=== PATIENT | female | born 1940 | race Caucasian/White ===

== ENCOUNTER 2019-09-24 12:10 | Inpatient (IN) | payer MEDICARE ==
--- NOTE | 2019-09-24 12:34 | ER Document Report ---
ED Medical Screen (RME) - General Chief Complaint: Abnormal Lab Results Stated Complaint: ABNORMAL LABS Time Seen by Provider: 09/24/19 12:15 Primary Care Provider: HARDIK MURRAY PA-C [Primary Care Provider] - Follow up as needed Mode of Arrival: Ambulatory Information source: Patient - HPI Notes: 09/24/19 12:31 67-year-old female with a history of hypertension, type 2 diabetes, peripheral neuropathies of her feet, hypercholesterolemia presents to the emergency room from her primary care provider for "abnormal labs", states that she had a "problem with my kidneys". Patient states she sees Hardik murray PCP, does not see any other provider for any other medical issues. Patient is unsure of what her kidney functions were. Patient is never been seen at this emergency room before by this hospital. Denies any chest pain, shortness of breath, nausea, vomiting, diarrhea, abdominal pain, lower back pain, dysuria, headache, fever chills, rashes. Denies any new medications foods or travel. I have greeted and performed a rapid initial assessment of this patient. A comprehensive ED assessment and evaluation of the patient, analysis of test res ults and completion of the medical decision making process will be conducted by additional ED providers. PHYSICAL EXAMINATION: GENERAL: Chronically ill, well-nourished and in no acute distress. HEAD: Atraumatic, normocephalic. EYES: Pupils equal round extraocular movements intact, conjunctiva are normal. NECK: Normal range of motion CV: sinus tachycardia LUNGS: No respiratory distress 09/24/19 12:34 Physical Exam - Vital signs Vitals: Temp Pulse Resp BP Pulse Ox 99.6 F 106 H 20 165/81 H 98 09/24/19 12:24 09/24/19 12:24 09/24/19 12:24 09/24/19 12:24 09/24/19 12:24 Course - Vital Signs Vital signs: Temp Pulse Resp BP Pulse Ox 99.6 F 106 H 20 165/81 H 98 09/24/19 12:24 09/24/19 12:24 09/24/19 12:24 09/24/19 12:24 09/24/19 12:24 Doctor's Discharge - Discharge Referrals: HARDIK MURRAY PA-C [Primary Care Provider] - Follow up as needed
[2019-09-24 14:07] LABS: ABSOLUTE EOSINOPHILS # (AUTO) 0.1 10^3/uL (0.0-0.6); ABSOLUTE LYMPHOCYTES (AUTO) 1.2 10^3/uL (0.5-4.7); ABSOLUTE MONOCYTES (AUTO) 0.4 10^3/uL (0.1-1.4); ABSOLUTE NEUT (AUTO) 3.7 10^3/uL (1.7-8.2); BASOPHILS % (AUTO) 0.5 % (0-2); EOSINOPHILS % (AUTO) 2.3 % (0-6); HEMATOCRIT 33.2 % (36.0-47.0); HEMOGLOBIN 11.5 g/dL (12.0-15.5); LYMPHOCYTES % (AUTO) 21.4 % (13-45); MEAN CORPUSCULAR HEMOGLOBIN 31.8 pg (27.0-33.4); MEAN CORPUSCULAR HGB CONC 34.7 g/dL (32.0-36.0); MEAN CORPUSCULAR VOLUME 92 fl (80-97); MONOCYTES % (AUTO) 7.6 % (3-13); PLATELET COUNT 208 10^3/uL (150-450); RED BLOOD COUNT 3.62 10^6/uL (3.72-5.28); RED CELL DISTRIBUTION WIDTH 13.1 % (11.5-14.0); SEGMENTED NEUTROPHILS % (AUTO) 68.2 % (42-78); TOTAL CELLS COUNTED % (AUTO) 100 %; WHITE BLOOD COUNT 5.5 10^3/uL (4.0-10.5)
[2019-09-24 14:11] LABS: APPEARANCE,URINE CLOUDY; BILIRUBIN,URINE NEGATIVE (NEGATIVE); COLOR,URINE YELLOW; GLUCOSE, URINE NEGATIVE (NEGATIVE); KETONES,URINE NEGATIVE (NEGATIVE); LEUKOCYTE ESTERASE,URINE LARGE (NEGATIVE); NITRITE,URINE POSITIVE (NEGATIVE); PROTEIN,URINE 100 mg/dL (NEGATIVE); URINE SPECIFIC GRAVITY 1.012; UROBILINOGEN,URINE NEGATIVE mg/dL (<2.0)
--- NOTE | 2019-09-24 14:21 | EKG REPORT ---
SEVERITY:- OTHERWISE NORMAL ECG - SINUS RHYTHM BORDERLINE LEFT AXIS DEVIATION : Confirmed by: Quoc Garcia MD 24-Sep-2019 14:21:25
[2019-09-24 14:30] LABS: ALBUMIN 4.4 g/dL (3.5-5.0); ALKALINE PHOSPHATASE 51 U/L (38-126); ANION GAP 14 (5-19); ASPARTATE AMINO TRANSFERASE 32 U/L (14-36); BILIRUBIN,TOTAL 0.3 mg/dL (0.2-1.3); BLOOD UREA NITROGEN 43 mg/dL (7-20); CALCIUM 9.8 mg/dL (8.4-10.2); CARBON DIOXIDE 20 mmol/L (22-30); CHLORIDE 103 mmol/L (98-107); GLUCOSE 119 mg/dL (75-110); POTASSIUM 5.5 mmol/L (3.6-5.0); TOTAL PROTEIN 7.2 g/dL (6.3-8.2)
[2019-09-24] MEDS ORDERED: NORMAL SALINE 1000 ML 1,000 ML IV ONE (16:14)
--- NOTE | 2019-09-24 16:24 | ER Document Report ---
ED General - General Chief Complaint: Abnormal Lab Results Stated Complaint: ABNORMAL LABS Time Seen by Provider: 09/24/19 12:15 Primary Care Provider: HARDIK MURRAY PA-C [Primary Care Provider] - Follow up as needed Mode of Arrival: Ambulatory - [facility] Notes: Patient is a 78-year-old female who presents to the emergency department for evaluation of abnormal labs. She states she saw Hardik murray for routine follow- up, had her 6-month labs performed. She was sent here because of an abnormal creatinine. The patient states she has been eating and drinking normally. She has been stable on the medications she has been taking for years. She states she may have noticed a small decrease in her urination, but is urinated 4 times so far today. No fevers or chills. No nausea or vomiting. No diarrhea. Eating and drinking normally. No changes in activity. She has not been s welling. She has no dysuria or hematuria. 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" Endocrine Medical History: Reports: Hx Diabetes Mellitus Type 2 Review of Systems - Review of Systems Constitutional: No symptoms reported EENT: No symptoms reported Cardiovascular: No symptoms reported Respiratory: No symptoms reported Gastrointestinal: No symptoms reported Genitourinary: No symptoms reported Female Genitourinary: No symptoms reported Musculoskeletal: No symptoms reported Skin: No symptoms reported Hematologic/Lymphatic: No symptoms reported Neurological/Psychological: No symptoms reported Physical Exam - Vital signs Vitals: Temp Pulse Resp BP Pulse Ox 99.6 F 106 H 20 165/81 H 98 09/24/19 12:24 09/24/19 12:24 09/24/19 12:24 09/24/19 12:24 09/24/19 12:24 - Notes Notes: Vital signs reviewed, please refer to chart. Head is normocephalic, atraumatic. Pupils equal round, reactive to light. Neck is supple without meningismus. Heart is regular rate and rhythm. Lungs are clear to auscultation bilaterally. Abdomen is soft, nontender, normoactive bowel sounds throughout. Extremities without cyanosis, clubbing. Posterior calves are nontender. Peripheral pulses are equal. Skin is warm and dry. Patient is awake, alert, neurological exam is nonfocal. Course - Re-evaluation Re-evalutation: 09/24/19 16:23 Patient presents to the emergency department for evaluation of abnormal labs. Laboratory investigations were ordered. I did have a chance to review old labs as placed in the chart. She had a normal creatinine at the end of last year. Today it is 5.69. She has mild hyperkalemia mild dehydration. She is given a liter of fluids. She has no EKG changes. I discussed this with the patient, I believe it is tovar for the patient to be admitted to have a further evaluation of this renal failure. She is amenable to this. 09/24/19 16:[address] Kelsey, then Geovanna Martinez NP, who will admit the patient. As per medicine's request, I did also speak to Dr. Garcia. He will see the patient in consultation. - Vital Signs Vital signs: Temp Pulse Resp BP Pulse Ox 99.6 F 106 H 20 165/81 H 98 09/24/19 12:24 09/24/19 12:24 09/24/19 12:24 09/24/19 12:24 09/24/19 12:24 - Laboratory Result Diagrams: 09/24/19 13:25 09/24/19 13:25 Laboratory results interpreted by me: 09/24/19 09/24/19 09/24/19 13:15 13:25 13:25 RBC 3.62 L Hgb 11.5 L Hct 33.2 L Potassium 5.5 H Carbon Dioxide 20 L BUN 43 H Creatinine 5.69 H Est GFR ( Amer) 9 L Est GFR (MDRD) Non-Af 7 L Glucose 119 H Urine Protein 100 H Urine Blood MODERATE H Urine Nitrite POSITIVE H Ur Leukocyte Esterase LARGE H - EKG Interpretation by Me Additional EKG results interpreted by me: 09/24/19 16:23 Sinus mechanism with a rate of 83 bpm. Mild left axis deviation. Normal intervals. No acute ST changes concerning for ischemia or infarction. Discharge - Discharge Clinical Impression: Acute renal failure, Hyperkalemia, Urinary tract infection Condition: Stable Disposition: ADMITTED INPATIENT Admitting Provider: Laure (Hospitalist) - Geovanna Martinez NP Unit Admitted: Telemetry Referrals: HRADIK MURRAY PA-C [Primary Care Provider] - Follow up as needed
[2019-09-24] MEDS ORDERED: CEFTRIAXONE 1 GM/D5W RTU 1 GM/50 ML RTUPB IV ONE (16:30)
[2019-09-24] MEDS ORDERED: ONDANSETRON HCL INJ/PF 4 MG/2 ML SDV IV PRN (17:20)
[2019-09-24] MEDS ORDERED: MAG HYDROX/AL HYDROX/SIMETH SUSP 30 ML UDCUP PO PRN (17:20)
[2019-09-24] MEDS ORDERED: HYDRALAZINE HCL INJ/PF 20 MG/1 ML SDV IV PRN (17:24)
[2019-09-24] MEDS ORDERED: DEXTROSE 40% GEL 15 GM TUBE PO PRN ×2 (17:28)
[2019-09-24] MEDS ORDERED: DEXTROSE 50%-WATER 25 GM/50 ML DISP.SYRIN IV PRN ×2 (17:28)
[2019-09-24] MEDS ORDERED: GLUCAGON,HUMAN RECOMB 1 MG INJ IM PRN (17:28)
[2019-09-24] MEDS ORDERED: SODIUM POLYSTYRENE SULFONATE 15 GM/60 ML PO ONE (17:34)
--- NOTE | 2019-09-24 17:37 | PDOC H&P ---
History of Present Illness Admission Date/PCP: HARDIK PAYTON PA-C Patient complains of: abnormal labs History of Present Illness: ARMIDA CARTER is a 78 year old female with a past medical history significant for DM 2, goiter, hypertension, hyperlipidemia who presented to the emergency department today after being instructed to do so by her primary care provider related to abnormal labs. She was found to have a Creatinine >5 on her yearly routine lab work this week. Patient reports that she has been in her usual state of health; denies new symptoms or medication changes. She reports adequate p.o. intake of fluids without change in appetite. Evaluation emergency department revealed low-grade temp (99.6) tachycardia (HR 106), hypertension (165/81), creatinine 5.69/BUN 43, potassium 5.5, and urinalysis positive for UTI. She is provided a 1 L normal saline bolus and rocephin. Nephrology is consulted. She is referred to the hospitalist service for admission and management of the above complaints and findings. Past Medical History Cardiac Medical History: Reports: Hyperlipidema, Hypertension Pulmonary Medical History: Reports: None EENT Medical History: Reports: Eyes - Lt occular CVA Endocrine Medical History: Reports: Diabetes Mellitus Type 2 Renal/ Medical History: Reports: None Malignancy Medical History: Reports: None GI Medical History: Reports: None Musculoskeltal Medical History: Reports: None Skin Medical History: Reports: None Psychiatric Medical History: Reports: None Traumatic Medical History: Reports: None Hematology: Reports: None Infectious Medical History: Reports: None Social History Information Source: Patient Lives with: Alone Smoking Status: Former Smoker Electronic Cigarette use?: No Frequency of Alcohol Use: Rare Hx Recreational Drug Use: No Hx Prescription Drug Abuse: No - Advance Directive Resuscitation Status: Full Code Family History Family History: Malignancy - Leukemia in mother Parental Family History Reviewed: Yes Children Family History Reviewed: Yes Sibling(s) Family History Reviewed.: Yes Medication/Allergy Allergies/Adverse Reactions: No Known Allergies Allergy (Verified 09/24/19 17:30) Review of Systems Constitutional: ABSENT: chills, fever(s), headache(s), weight gain, weight loss Eyes: ABSENT: visual disturbances Ears: ABSENT: hearing changes Cardiovascular: ABSENT: chest pain, dyspnea on exertion, edema, orthropnea, palpitations Respiratory: ABSENT: cough, hemoptysis Gastrointestinal: ABSENT: abdominal pain, constipation, diarrhea, hematemesis, hematochezia, nausea, vomiting Genitourinary: ABSENT: difficulty urinating, dysuria, hematuria Musculoskeletal: ABSENT: joint swelling Integumentary: ABSENT: rash, wounds Neurological: ABSENT: abnormal gait, abnormal speech, confusion, dizziness, focal weakness, syncope Psychiatric: ABSENT: anxiety, depression, homidical ideation, suicidal ideation Endocrine: ABSENT: cold intolerance, heat intolerance, polydipsia, polyuria Hematologic/Lymphatic: ABSENT: easy bleeding, easy bruising Physical Exam Vital Signs: Temp Pulse Resp BP Pulse Ox 99.6 F 106 H 20 165/81 H 98 09/24/19 12:24 09/24/19 12:24 09/24/19 12:24 09/24/19 12:24 09/24/19 12:24 Intake & Output 09/23/19 09/24/19 09/25/19 06:59 06:59 06:59 Weight 72 kg General appearance: PRESENT: no acute distress, cooperative, well-developed, well-nourished Head exam: PRESENT: atraumatic, normocephalic Eye exam: PRESENT: conjunctiva pink, EOMI, PERRLA. ABSENT: scleral icterus Mouth exam: PRESENT: moist, tongue midline Respiratory exam: PRESENT: clear to auscultation huan, symmetrical, unlabored. ABSENT: rales, rhonchi, wheezes Cardiovascular exam: PRESENT: RRR, +S1, +S2. ABSENT: diastolic murmur, rubs, systolic murmur Pulses: PRESENT: normal dorsalis pedis pul Vascular exam: PRESENT: normal capillary refill GI/Abdominal exam: PRESENT: normal bowel sounds, soft. ABSENT: distended, guarding, mass, organolmegaly, rebound, tenderness Rectal exam: PRESENT: deferred Extremities exam: PRESENT: full ROM. ABSENT: calf tenderness, clubbing, pedal edema Musculoskeletal exam: PRESENT: ambulatory Neurological exam: PRESENT: alert, awake, oriented to person, oriented to place, oriented to time, oriented to situation, CN II-XII grossly intact. ABSENT: motor sensory deficit Psychiatric exam: PRESENT: anxious, appropriate affect, normal mood. ABSENT: homicidal ideation, suicidal ideation Skin exam: PRESENT: dry, intact, warm. ABSENT: cyanosis, rash Results Laboratory Results: 09/24/19 13:25 09/24/19 13:25 09/24/19 09/24/19 09/24/19 13:15 13:25 13:25 WBC 5.5 RBC 3.62 L Hgb 11.5 L Hct 33.2 L MCV 92 MCH 31.8 MCHC 34.7 RDW 13.1 Plt Count 208 Seg Neutrophils % 68.2 Sodium 137.4 Potassium 5.5 H Chloride 103 Carbon Dioxide 20 L Anion Gap 14 BUN 43 H Creatinine 5.69 H Est GFR ( Amer) 9 L Glucose 119 H Calcium 9.8 Total Bilirubin 0.3 AST 32 Alkaline Phosphatase 51 Total Protein 7.2 Albumin 4.4 Urine Color YELLOW Urine Appearance CLOUDY Urine pH 5.0 Ur Specific [place] 1.012 Urine Protein 100 H Urine Glucose (UA) NEGATIVE Urine Ketones NEGATIVE Urine Blood MODERATE H Urine Nitrite POSITIVE H Ur Leukocyte Esterase LARGE H Urine WBC (Auto) >182 Urine RBC (Auto) 6 Assessment and Plan - Diagnosis (1) Acute renal failure Qualifiers: Acute renal failure type: unspecified Qualified Code(s): N17.9 - Acute kidney failure, unspecified Is this a current diagnosis for this admission?: Yes Plan: Urine sodium and creatinine are pending. Serum sodium 137.4, serum creatinine 5.69. Potassium 5.5. Patient is admitted in the medical floor on continuous cardiac telemetry. She is provided 1 L normal saline bolus by ED provider; will continue generous IV fluids. Renal ultrasound pending. Avoid nephrotoxic medications as able. Nephrology consulted. Strict I&O's. (2) Hyperkalemia Is this a current diagnosis for this admission?: Yes Plan: Secondary to #1. Kayexalate x1. Monitor on telemetry. Remaining management as above. (3) Urinary tract infection Qualifiers: Hematuria presence: with hematuria Is this a current diagnosis for this admission?: Yes Plan: Urinalysis suggest UTI. Urine and blood cultures pending. She is empirically placed on IV Rocephin. (4) HTN (hypertension) Qualifiers: Hypertension type: essential hypertension Qualified Code(s): I10 - Essential (primary) hypertension Is this a current diagnosis for this admission?: Yes Plan: IV hydralazine as needed for blood pressure control. We will resume home medication regiment once reconciled. Avoid nephrotoxic medications as able; renally dosed where appropriate. Prerenal diet. - Time Time Spent with patient: 35 or more minutes Medications reviewed and adjusted accordingly: Yes Anticipated discharge: Home - Inpatient Certification Based on my medical assessment, after consideration of the patient's comorbidities, presenting symptoms, or acuity I expect that the services needed warrant INPATIENT care.: Yes I certify that my determination is in accordance with my understanding of Medicare's requirements for reasonable and necessary INPATIENT services [42 CFR 412.3e].: Yes Medical Necessity: Need Close Monitoring Due to Risk of Patient Decompensation, Need For IV Fluids, Risk of Complication if Not Cared For in Hospital, Risk of Diagnosis Which Will Require Inpatient Eval/Care/Monitoring
[2019-09-24 17:54] LABS: URINE AMPHETAMINES SCREEN NEGATIVE; URINE BARBITURATES SCREEN NEGATIVE; URINE BENZODIAZEPINES SCREEN NEGATIVE; URINE COCAINE SCREEN NEGATIVE; URINE MARIJUANA (THC) SCREEN NEGATIVE; URINE METHADONE SCREEN NEGATIVE; URINE PHENCYCLIDINE SCREEN NEGATIVE
[2019-09-24 18:00] LABS: URINE CREATININE 92.8 mg/dL (15-278)
--- NOTE | 2019-09-24 18:44 | RADIOLOGY REPORT (SQ) ---
EXAM DESCRIPTION: U/S RETROPERITON LTD IMAGES COMPLETED DATE/TIME: 09/24/2019 6:28 pm REASON FOR STUDY: acute renal failre COMPARISON: None. TECHNIQUE: Dynamic and static grayscale images acquired of the kidneys and bladder and recorded on P ACS. Additional selected color Doppler and spectral images recorded. LIMITATIONS: None. FINDINGS: RIGHT KIDNEY: The right kidney measures 11.7 x 5.7 cm, normal size. Normal echogenicity. Multiple calcifications are identified, one of the largest measures 7 x 9 x 3 mm. Mild dilatation a t the ureteral pelvic junction measures 1.6 cm in AP diameter. . LEFT KIDNEY: The left kidney measures 11.5 x 5.9 cm, normal size. Normal size. Normal echogenicit y. Mild dilatation at the ureteral pelvic junction measures 1.3 mm in AP diameter. BLADDER: The patient states that she inserts a device to hold the urinary bladder into position(it i s visualized sonographically). Bilateral ureteral jets are not visualized. OTHER FINDINGS: No other significant finding. IMPRESSION: 1. Multiple nonobstructing right renal calculi. 2. Dilatation of the ureteropelvic junctions bilaterally right slightly more so than left. TECHNICAL DOCUMENTATION: JOB ID: [id number] 2010 [employer]- All Rights Reserved Reading location - IP/workstation name: [email or web address]
[2019-09-24] MEDS: NORMAL SALINE 1000 ML 1,000 ML IV PRN (19:10)
[2019-09-24] MEDS: INSULIN LISPRO 100 UNIT/ML 3 ML VIAL SUBCUT SCH (21:04)
[2019-09-24] MEDS: FAMOTIDINE 20 MG TABLET PO SCH (21:16)
[2019-09-24] MEDS: HEPARIN SOD (PORCINE) 5,000 UNIT/ML 1 ML VIAL SUBCUT SCH (21:18)
[2019-09-25] MEDS: NORMAL SALINE 1000 ML 1,000 ML IV PRN ×2 (05:41→15:19)
[2019-09-25] MEDS: HEPARIN SOD (PORCINE) 5,000 UNIT/ML 1 ML VIAL SUBCUT SCH ×3 (05:42→21:05)
[2019-09-25 06:42] LABS: HEMATOCRIT 29.3 % (36.0-47.0); HEMOGLOBIN 10.2 g/dL (12.0-15.5); MEAN CORPUSCULAR HGB CONC 34.9 g/dL (32.0-36.0); MEAN CORPUSCULAR VOLUME 92 fl (80-97); PLATELET COUNT 184 10^3/uL (150-450); RED BLOOD COUNT 3.19 10^6/uL (3.72-5.28); RED CELL DISTRIBUTION WIDTH 12.9 % (11.5-14.0); WHITE BLOOD COUNT 3.8 10^3/uL (4.0-10.5)
[2019-09-25 07:00] LABS: ANION GAP 9 (5-19); BLOOD UREA NITROGEN 39 mg/dL (7-20); CALCIUM 8.6 mg/dL (8.4-10.2); CARBON DIOXIDE 23 mmol/L (22-30); CHLORIDE 108 mmol/L (98-107); GLUCOSE 96 mg/dL (75-110); PHOSPHORUS 5.3 mg/dL (2.5-4.5); POTASSIUM 4.9 mmol/L (3.6-5.0)
[2019-09-25] MEDS: INSULIN LISPRO 100 UNIT/ML 3 ML VIAL SUBCUT SCH ×4 (08:31→21:05)
[2019-09-25] MEDS: ACETAMINOPHEN 325 MG TABLET PO PRN ×2 (09:38→20:31)
[2019-09-25] MEDS: MAGNESIUM SULFATE/D5W 1 GM/100 ML RTUPB IV SCH ×2 (09:38→11:31)
[2019-09-25] MEDS: FAMOTIDINE 20 MG TABLET PO SCH ×2 (09:39→21:27)
[2019-09-25] MEDS ORDERED: CEFTRIAXONE 1 GM/D5W RTU 1 GM/50 ML RTUPB IV SCH (10:00)
[2019-09-25] MEDS ORDERED: DOCUSATE SODIUM 100 MG CAPSULE PO SCH (10:00)
--- NOTE | 2019-09-25 13:36 | PDOC CONSULTATION ---
Consultation Consult Date: 09/25/19 Provider Consulted: Mera VILLANUEVA Consult reason:: ISHMAEL History of Present Illness Admission Date/PCP: 09/24/19 17:34 HARDIK PATYON PA-C History of Present Illness: ARMIDA CARTER is a 78 year old female with a past medical history significant for DM 2, goiter, hypertension, hyperlipidemia presented to the emergency department today after being instructed to do so by her primary care provider related to abnormal labs. She was found to have a Creatinine >5 on her yearly routine lab work this week. Patient reports that she has been in her usual state of health but for intermittent painless diarrhea x 1-2 weeks. No history of nausea vomiting or bloody discharge. No history of any fever or chills. Evaluations in the ER revealed that the patient had ISHMAEL with a BUN/creatinine of 43/5.6 and a potassium of 5.5 and a UA was positive for UTI. She was begun on fluid resuscitation and put on antibiotics and admitted for further evaluation. Ultrasound/imaging studies done shows mild bilateral ureteropelvic junction dilatation with nonobstructing renal calculi in both sides. Apparently she has some device ? pessary to hold up her prolapsing bladder which was also seen on ultrasound. Past Medical History Cardiac Medical History: Reports: Hyperlipidemia, Hypertension-primary Pulmonary Medical History: Reports: None EENT Medical History: Reports: Eyes - Lt occular CVA Endocrine Medical History: Reports: Diabetes Mellitus Type 2 Complications of Diabetes: Reports: None Renal/ Medical History: Reports: None Malignancy Medical History: Reports: None GI Medical History: Reports: None Musculoskeltal Medical History: Reports: None Skin Medical History: Reports: None Psychiatric Medical History: Reports: None Denies: Depression Traumatic Medical History: Reports: None Infectious Medical History: Reports: None Social History Lives with: Alone Smoking Status: Former Smoker Electronic Cigarette use?: No Frequency of Alcohol Use: Rare Hx Recreational Drug Use: No Hx Prescription Drug Abuse: No - Advance Directive Resuscitation Status: Full Code Family History Parental Family History Reviewed: Yes - Denies any history of ESRD. Children Family History Reviewed: No Sibling(s) Family History Reviewed.: No Medication/Allergy Home Medications: Enalapril Maleate [Vasotec 10 mg Tablet] 20 mg PO QAM 09/24/19 Gabapentin [Neurontin] 800 mg PO BID 09/24/19 Metformin HCl [Glucophage] 1,000 mg PO BIDBS 09/24/19 Pravastatin Sodium 40 mg PO QAM 09/24/19 Allergies/Adverse Reactions: No Known Allergies Allergy (Verified 09/24/19 17:30) Review of Systems Constitutional: PRESENT: anorexia. ABSENT: chills, fatigue, fever(s), headache(s), night sweats, weakness Nose, Mouth, and Throat: ABSENT: mouth pain, sore throat Cardiovascular: ABSENT: chest pain, dyspnea on exertion, edema, orthropnea, palpitations Respiratory: ABSENT: dyspnea, hemoptysis Gastrointestinal: PRESENT: diarrhea. ABSENT: abdominal pain, bloating, coffee ground emesis, constipation, dysphagia, heartburn, hematemesis, hematochezia, nausea, vomiting Genitourinary: ABSENT: difficulty urinating, dysuria, hematuria Musculoskeletal: ABSENT: deformity, joint swelling Integumentary: ABSENT: lesions, pruritus, rash Neurological: ABSENT: abnormal speech, confusion, convulsions, focal weakness, frequent falls Hematologic/Lymphatic: ABSENT: easy bruising, lymphadenopathy Physical Exam Vital Signs: Temp Pulse Resp BP Pulse Ox 97.9 F 83 17 176/83 H 98 09/25/19 10:57 09/25/19 10:57 09/25/19 10:57 09/25/19 10:57 09/25/19 10:57 Intake & Output 09/24/19 09/25/19 09/26/19 06:59 06:59 06:59 Intake Total 2450 270 Output Total 1000 Balance 1450 270 Weight 73.5 kg General appearance: PRESENT: no acute distress Eye exam: PRESENT: EOMI, PERRLA. ABSENT: scleral icterus Ear exam: PRESENT: normal external ear exam Mouth exam: PRESENT: moist Neck exam: ABSENT: lymphadenopathy, meningismus, tenderness, thyromegaly, tracheal deviation Respiratory exam: PRESENT: clear to auscultation huan, decreased breath sounds. ABSENT: crackles Cardiovascular exam: PRESENT: +S1, +S2 GI/Abdominal exam: PRESENT: normal bowel sounds, soft. ABSENT: organomegaly, tenderness Extremities exam: ABSENT: pedal edema Neurological exam: PRESENT: alert, awake, oriented to person, oriented to place Psychiatric exam: PRESENT: appropriate affect Skin exam: ABSENT: erythema, mottled, rash Results Laboratory Results: 09/25/19 05:54 09/25/19 05:54 09/24/19 09/24/19 09/24/19 13:15 13:25 13:25 WBC 5.5 RBC 3.62 L Hgb 11.5 L Hct 33.2 L MCV 92 MCH 31.8 MCHC 34.7 RDW 13.1 Plt Count 208 Seg Neutrophils % 68.2 Sodium 137.4 Potassium 5.5 H Chloride 103 Carbon Dioxide 20 L Anion Gap 14 BUN 43 H Creatinine 5.69 H Est GFR ( Amer) 9 L Glucose 119 H Calcium 9.8 Phosphorus Magnesium Total Bilirubin 0.3 AST 32 Alkaline Phosphatase 51 Total Protein 7.2 Albumin 4.4 TSH Urine Color YELLOW Urine Appearance CLOUDY Urine pH 5.0 Ur Specific [place] 1.012 Urine Protein 100 H Urine Glucose (UA) NEGATIVE Urine Ketones NEGATIVE Urine Blood MODERATE H Urine Nitrite POSITIVE H Ur Leukocyte Esterase LARGE H Urine WBC (Auto) >182 Urine RBC (Auto) 6 09/25/19 09/25/19 09/25/19 05:54 05:54 05:54 WBC 3.8 L RBC 3.19 L Hgb 10.2 L Hct 29.3 L MCV 92 MCH 32.0 MCHC 34.9 RDW 12.9 Plt Count 184 Seg Neutrophils % Sodium 140.2 Potassium 4.9 Chloride 108 H Carbon Dioxide 23 Anion Gap 9 BUN 39 H Creatinine 3.88 H Est GFR ( Amer) 14 L Glucose 96 Calcium 8.6 Phosphorus 5.3 H Magnesium 1.2 L* Total Bilirubin AST Alkaline Phosphatase Total Protein Albumin TSH 3.98 Urine Color Urine Appearance Urine pH Ur Specific [place] Urine Protein Urine Glucose (UA) Urine Ketones Urine Blood Urine Nitrite Ur Leukocyte Esterase Urine WBC (Auto) Urine RBC (Auto) 09/24/19 13:25 Creatine Kinase 161 H Impressions: Renal Ultrasound 09/24/19 00:00 IMPRESSION: 1. Multiple nonobstructing right renal calculi. 2. Dilatation of the ureteropelvic junctions bilaterally right slightly more so than left. Assessment & Plan - Diagnosis (1) Acute renal failure Qualifiers: Acute renal failure type: unspecified Qualified Code(s): N17.9 - Acute kidney failure, unspecified Is this a current diagnosis for this admission?: Yes Plan: ISHMAEL from UTI found with some prerenal dehydration. However ultrasound shows he has mild bilateral ureteropelvic junction dilation along with device to hold up her prolapsing bladder which was also seen on the ultrasound? Pessary. Unsure what role is her diarrhea playing but apparently looks chronic or whether its part of her UTI and this might need to be looked at. She denies any history of antibiotics in the last 1 month. Renal functions improving nicely and will continue on current guidelines.However she will need to be evaluated by the urologist to look further into her renal pelvic dilatation to delineate what exactly may be causing this to happen. Meanwhile I would also like to do a contrasted CT scan of her kidneys but I am going to defer that for now until she her renal functions are completely improved and this could very well be done as an outpatient by the urologist. (2) HTN (hypertension) Qualifiers: Hypertension type: essential hypertension Qualified Code(s): I10 - Essential (primary) hypertension Is this a current diagnosis for this admission?: Yes Plan: Uncontrolled. Monitor. (3) Hyperkalemia Is this a current diagnosis for this admission?: Yes Plan: Resolved. (4) Urinary tract infection Qualifiers: Hematuria presence: with hematuria Is this a current diagnosis for this admission?: Yes Plan: Preliminary urine cultures growing gram-negative rods. Patient on antibiotics which can be modified based on culture results. Continue current guidelines. (5) Hypomagnesemia Plan: Got IV replacement. Start Po Mag oxide.Monitor.
[2019-09-25] MEDS: MAGNESIUM OXIDE 400 MG TABLET PO SCH ×2 (13:47→17:08)
--- NOTE | 2019-09-25 21:30 | PDOC PROGRESS REPORT ---
Subjective Progress Note for:: 09/25/19 Subjective:: ARMIDA CARTER is a 78 year old female with a past medical history significant for DM 2, goiter, hypertension, hyperlipidemia who was admitted 09/24/2019 with acute renal failure. Patient was seen on morning rounds; discussed the patient's progress with her granddaughter by phone at patient's request.. She is found resting in bed, comfortably, on room air. She reports that she is feeling well today. She denies all symptoms of fever, chills, headache, dizziness, chest pain, palpitations, dyspnea, orthopnea, cough, abdominal pain, nausea, vomiting, diarrhea, urinary retention/hesitancy/frequency/dysuria. She asks about the timeframe for her to be discharged home. We did discuss her pessary; she reports that she has had this for several years. 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 She reports that she is able to remove it freely and does so to wash it several times a week. She states that she has no difficulty or discomfort with replacing the pessary and does not feel that it has caused any difficulty with bladder emptying. I did advise the patient that she should follow-up with gynecology and likely urology, to further evaluate her ultrasound findings as I am concerned that the pessary could potentially be contributing to some postobstructive failure. She has no other questions or concerns. No concerns per nursing. Reason For Visit: ACUTE RENAL FAILURE Physical Exam Vital Signs: Temp Pulse Resp BP Pulse Ox 98.3 F 72 17 164/70 H 95 09/25/19 19:39 09/25/19 19:39 09/25/19 19:39 09/25/19 20:28 09/25/19 19:39 Intake & Output 09/24/19 09/25/19 09/26/19 06:59 06:59 06:59 Intake Total 2450 1465 Output Total 1000 Balance 1450 1465 Weight 73.5 kg General appearance: PRESENT: no acute distress, cooperative, well-developed, well-nourished Head exam: PRESENT: atraumatic, normocephalic Eye exam: PRESENT: conjunctiva pink, EOMI, PERRLA. ABSENT: scleral icterus Mouth exam: PRESENT: moist, tongue midline Respiratory exam: PRESENT: clear to auscultation huan, symmetrical, unlabored. ABSENT: rales, rhonchi, wheezes Cardiovascular exam: PRESENT: RRR. ABSENT: diastolic murmur, rubs, systolic murmur Pulses: PRESENT: normal dorsalis pedis pul Vascular exam: PRESENT: normal capillary refill GI/Abdominal exam: PRESENT: normal bowel sounds, soft. ABSENT: distended, guar ding, mass, organolmegaly, rebound, tenderness Rectal exam: PRESENT: deferred Extremities exam: PRESENT: full ROM. ABSENT: calf tenderness, clubbing, pedal edema Neurological exam: PRESENT: alert, awake, oriented to person, oriented to place, oriented to time, oriented to situation, CN II-XII grossly intact. ABSENT: motor sensory deficit Psychiatric exam: PRESENT: appropriate affect, normal mood. ABSENT: homicidal ideation, suicidal ideation Skin exam: PRESENT: dry, intact, warm. ABSENT: cyanosis, rash Results Laboratory Results: 09/25/19 05:54 09/25/19 05:54 09/25/19 09/25/19 09/25/19 05:54 05:54 05:54 WBC 3.8 L RBC 3.19 L Hgb 10.2 L Hct 29.3 L MCV 92 MCH 32.0 MCHC 34.9 RDW 12.9 Plt Count 184 Sodium 140.2 Potassium 4.9 Chloride 108 H Carbon Dioxide 23 Anion Gap 9 BUN 39 H Creatinine 3.88 H Est GFR ( Amer) 14 L Glucose 96 Calcium 8.6 Phosphorus 5.3 H Magnesium 1.2 L* TSH 3.98 09/24/19 13:25 Creatine Kinase 161 H Impressions: Renal Ultrasound 09/24/19 00:00 IMPRESSION: 1. Multiple nonobstructing right renal calculi. 2. Dilatation of the ureteropelvic junctions bilaterally right slightly more so than left. Assessment and Plan - Diagnosis (1) Acute renal failure Qualifiers: Acute renal failure type: unspecified Qualified Code(s): N17.9 - Acute kidney failure, unspecified Is this a current diagnosis for this admission?: Yes Plan: Improved; creatinine has trended down to 3.88/BUN 39. FeNa 4.2%; ? post obstructive Hyperkalemia has resolved. Good urinary output. Renal ultrasound demonstrated multiple nonobstructive right renal calculi with dilatation of the ureteropelvic junction bilaterally,: Right greater than left Patient is admitted in the medical floor on continuous cardiac telemetry. Will continue generous IV fluids. Avoid nephrotoxic medications as able. Nephrology consulted; appreciate Dr. Garcia's evaluation and recommendations. Strict I&O's. Follow-up chemistry (2) Hyperkalemia Is this a current diagnosis for this admission?: Yes Plan: Resolved. Secondary to #1. Kayexalate x1. Monitor on telemetry. Remaining management as above. (3) Urinary tract infection Qualifiers: Hematuria presence: with hematuria Is this a current diagnosis for this admission?: Yes Plan: Urinalysis suggest UTI. Urine culture shows gram-negative rods Blood cultures are negative at 24 hours She is empirically placed on IV Rocephin. (4) HTN (hypertension) Qualifiers: Hypertension type: essential hypertension Qualified Code(s): I10 - Essential (primary) hypertension Is this a current diagnosis for this admission?: Yes Plan: IV hydralazine as needed for blood pressure control. Holding home dose Vasotec secondary to acute renal failure. Start amlodipine 10 mg nightly. Prerenal diet. (5) Hypomagnesemia Is this a current diagnosis for this admission?: Yes Plan: Magnesium 2 g IV followed by oral replacement. Periodic magnesium level - Time Time Spent with patient: 25-34 minutes Medications reviewed and adjusted accordingly: Yes Anticipated discharge: Home
[2019-09-25] MEDS ORDERED: ATORVASTATIN CALCIUM 10 MG TABLET PO SCH (22:00)
[2019-09-26] MEDS: HEPARIN SOD (PORCINE) 5,000 UNIT/ML 1 ML VIAL SUBCUT SCH (05:23)
[2019-09-26 06:44] LABS: ABSOLUTE EOSINOPHILS # (AUTO) 0.1 10^3/uL (0.0-0.6); ABSOLUTE LYMPHOCYTES (AUTO) 0.9 10^3/uL (0.5-4.7); ABSOLUTE MONOCYTES (AUTO) 0.3 10^3/uL (0.1-1.4); ABSOLUTE NEUT (AUTO) 2.1 10^3/uL (1.7-8.2); BASOPHILS % (AUTO) 1.2 % (0-2); EOSINOPHILS % (AUTO) 4.1 % (0-6); HEMATOCRIT 28.5 % (36.0-47.0); HEMOGLOBIN 10.2 g/dL (12.0-15.5); LYMPHOCYTES % (AUTO) 27.2 % (13-45); MEAN CORPUSCULAR HEMOGLOBIN 32.2 pg (27.0-33.4); MEAN CORPUSCULAR HGB CONC 35.7 g/dL (32.0-36.0); MEAN CORPUSCULAR VOLUME 90 fl (80-97); PLATELET COUNT 171 10^3/uL (150-450); RED BLOOD COUNT 3.16 10^6/uL (3.72-5.28); RED CELL DISTRIBUTION WIDTH 12.8 % (11.5-14.0); SEGMENTED NEUTROPHILS % (AUTO) 59.5 % (42-78); TOTAL CELLS COUNTED % (AUTO) 100 %; WHITE BLOOD COUNT 3.5 10^3/uL (4.0-10.5)
[2019-09-26 07:10] LABS: ANION GAP 8 (5-19); BLOOD UREA NITROGEN 27 mg/dL (7-20); CARBON DIOXIDE 20 mmol/L (22-30); CHLORIDE 112 mmol/L (98-107); GLUCOSE 118 mg/dL (75-110)
[2019-09-26 07:16] LABS: POTASSIUM 3.9 mmol/L (3.6-5.0)
[2019-09-26] MEDS ORDERED: (PENDING PHARMACY ID) (Pravastatin Sodium [Pravastatin Sodium] 40 MG) PO SCH (08:00)
[2019-09-26 08:15] VITALS: BP 152/68
[2019-09-26] MEDS: INSULIN LISPRO 100 UNIT/ML 3 ML VIAL SUBCUT SCH (08:32)
[2019-09-26] MEDS ORDERED: NORMAL SALINE 1000 ML 1,000 ML IV PRN (08:55)
--- NOTE | 2019-09-29 16:12 | Left Against Medical Advice ---
Against Medical Advice Admission Date/Time: 09/24/19 17:34 Primary Care Provider: HARDIK PAYTON PA-C Date of Patient Emigration: 09/26/19 - Diagnosis: (1) Acute renal failure Is this a current diagnosis for this admission?: Yes (2) Hyperkalemia Is this a current diagnosis for this admission?: Yes (3) Urinary tract infection Is this a current diagnosis for this admission?: Yes (4) HTN (hypertension) Is this a current diagnosis for this admission?: Yes (5) Hypomagnesemia Is this a current diagnosis for this admission?: Yes - Summary: Summary: Please see Admission and Progress Notes as well. ARMIDA CARTER is a 78 F, who LEFT AGAINST MEDICAL ADVICE. The Patient was admitted on 09/24/19 17:34. The patient was admitted to the medical floor on continuous cardiac telemetry for acute renal failure and urinary tract infection. Renal ultrasound was benign. Nephrology was consulted. Patient was placed on IV Rocephin with generous IV fluids. Her creatinine and BUN did begin to trend downward. Per Dr. Garcia's notes, he was interested in potentially obtaining further imaging to identify the source of the patient's renal failure. Unfortunately, the patient elected to leave AGAINST MEDICAL ADVICE early on the morning of 09/26/2019 prior to my being able to meet with her to discuss her plan of care for the day. Her most updated creatinine is 2.36 (down from 5.69) with a BUN of 27 (down from 43). EGFR 20. A prescription for Ceftin was electronically prescribed for treatment of her urinary tract infection.
== END 2019-09-26 08:20 | disposition left against medical advice (07) | DRG 683 ==
LOC: ER 12:10 → EH 17:34 → 4S 18:43
PROVIDERS: ADMIT Internal Medicine; ATTEND Registered Nurse
DX: N17.9 Acute kidney failure, unspecified (principal); N39.0 Urinary tract infection, site not specified; E87.5 Hyperkalemia; E78.5 Hyperlipidemia, unspecified; I10 Essential (primary) hypertension; E11.9 Type 2 diabetes mellitus without complications; E83.42 Hypomagnesemia; Z60.2 Problems related to living alone
CPT/HCPCS: 36415; 76775; 80048; 80053; 80307; 81001; 82550; 82570; 82962; 83735; 84100; 84300; 84443; 85025; 85027; 87040; 87077; 87086; 87088; 87150; 87186; 93005; 93010; 96361; 96374; 99285; J0360; J0696; J1644; J3475; J7030